=== PATIENT | female | born 1985 | race Caucasian/White ===

== ENCOUNTER → 2016-03-25 | Outpatient (CLI) | payer BC | LOC: GMAL 11:35 | PROVIDERS: ATTEND Family Medicine | DX: R31.0 Gross hematuria (principal) ==

== ENCOUNTER → 2017-04-20 | Outpatient (CLI) | payer BC | LOC: GMAL 12:49 | PROVIDERS: ATTEND Family Medicine | DX: E55.9 Vitamin D deficiency, unspecified (principal); E11.9 Type 2 diabetes mellitus without complications ==

== ENCOUNTER → 2017-10-10 | Outpatient (CLI) | payer BC | LOC: GMAL 10:42 | PROVIDERS: ATTEND Family Medicine | DX: Z00.00 Encounter for general adult medical examination without abnormal findings (principal) ==

== ENCOUNTER → 2018-03-21 | Outpatient (CLI) | payer BC ==
--- NOTE | 2018-03-21 12:35 | US ---
Procedure: US LIVER Exam Date: 03/21/2018 Ordering Provider: Jean Paul Price Clinical Indication: RUQ PAIN Comparison: None Technique: Real-time ultrasonography was obtained over the right upper quadrant and registered representative images were recorded. Findings: There are gallstones within the gallbladder lumen. There is no gallbladder wall thickening or pericholecystic fluid. Negative Duran's. The common bile duct is normal in size measuring 3 mm. The liver is normal in size and contour. There is diffuse increased echogenicity of the liver consistent with fatty infiltration. There is no hepatic mass. There is no intrahepatic ductal dilatation. Visualized pancreas is within normal limits. No hydronephrosis in the right kidney. There is no ascites. Impression: 1. Cholelithiasis without evidence of acute cholecystitis. 2. Hepatic steatosis. Electronically signed by: Ryne Aldridge MD 03/21/2018 12:33 PM CANAL EQUIPMENT MECHANIC
--- NOTE | 2018-03-21 14:01 | US ---
Procedure: US LIVER Exam Date: 03/21/2018 Ordering Provider: Jean Paul Price Clinical Indication: RUQ PAIN Comparison: None Technique: Real-time ultrasonography was obtained over the right upper quadrant and pest control service representative images were recorded. Findings: There are gallstones within the gallbladder lumen. There is no gallbladder wall thickening or pericholecystic fluid. Negative Duran's. The common bile duct is normal in size measuring 3 mm. The liver is normal in size and contour. There is diffuse increased echogenicity of the liver consistent with fatty infiltration. There is no hepatic mass. There is no intrahepatic ductal dilatation. Visualized pancreas is within normal limits. No hydronephrosis in the right kidney. There is no ascites. Impression: 1. Cholelithiasis without evidence of acute cholecystitis. 2. Hepatic steatosis. Electronically signed by: Ryne Aldridge MD 03/21/2018 12:33 PM SCIENTIST/ENGINEER
--- NOTE | 2018-03-21 14:12 | US ---
Procedure: US LIVER Exam Date: 03/21/2018 Ordering Provider: Jean Paul Price Clinical Indication: RUQ PAIN Comparison: None Technique: Real-time ultrasonography was obtained over the right upper quadrant and sales representative adding machines images were recorded. Findings: There are gallstones within the gallbladder lumen. There is no gallbladder wall thickening or pericholecystic fluid. Negative Duran's. The common bile duct is normal in size measuring 3 mm. The liver is normal in size and contour. There is diffuse increased echogenicity of the liver consistent with fatty infiltration. There is no hepatic mass. There is no intrahepatic ductal dilatation. Visualized pancreas is within normal limits. No hydronephrosis in the right kidney. There is no ascites. Impression: 1. Cholelithiasis without evidence of acute cholecystitis. 2. Hepatic steatosis. Electronically signed by: Ryne Aldridge MD 03/21/2018 12:33 PM DREDGE PUMP OPERATOR
== END ==
LOC: US 11:40
PROVIDERS: ATTEND Family Medicine
DX: K80.20 Calculus of gallbladder without cholecystitis without obstruction (principal); K76.0 Fatty (change of) liver, not elsewhere classified

== ENCOUNTER → 2018-10-18 | Outpatient (CLI) | payer BC | LOC: GMAL 12:08 | PROVIDERS: ATTEND Family Medicine | DX: Z00.00 Encounter for general adult medical examination without abnormal findings (principal); D50.8 Other iron deficiency anemias ==

== ENCOUNTER → 2019-10-22 | Outpatient (CLI) | payer BC | LOC: GMAL 11:12 | PROVIDERS: ATTEND Family Medicine | DX: Z00.01 Encounter for general adult medical examination with abnormal findings (principal); D51.3 Other dietary vitamin B12 deficiency anemia; E11.9 Type 2 diabetes mellitus without complications ==